=== PATIENT | male | born 1985 | race Caucasian/White ===

== ENCOUNTER 2017-02-23 17:10 | Emergency (ER) | payer BC ==
[~2017-02-23] VITALS: Ht 182.9 cm; Wt 106.6 kg
[~2017-02-23 17:10] MED LIST: ALBUTEROL2.5 MG/31 INH; ANTIVERT25 MG PO; BACTRIM DS TAB1 EACH PO; CARAFATE 1 GM TA1 GM PO; CEPHALEXIN 500500 M3 PO; FLEXERIL PO; IBUPROFEN 800800 M1 PO; NAPROSYN500 MG PO; NOHOMEMEDICATIONS; NORCO 5-325 TA1 EAC1 PO; ONDANSETRON HCL4 M2 PO; PREDNISONE 20 M20 MG PO; PREDNISONE50 MG PO; PROAIR HFA8.5 GM INH; PROMETHAZINE D480 ML PO; TENEX1 MG PO; TESSALON PERLE100 MG PO; ZPAK PO
[2017-02-23 18:12] LABS: URINE BILIRUBIN NEGATIVE (Negative); URINE BLOOD TRACE (Negative); URINE CLARITY CLEAR; URINE COLOR YELLOW; URINE GLUCOSE-RANDOM NEGATIVE (Negative); URINE KETONES NEGATIVE (Negative); URINE LEUKOCYTES-REFLEX NEGATIVE (Negative); URINE NITRITE-REFLEX NEGATIVE (Negative); URINE PROTEIN NEGATIVE (Negative); URINE SPECIFIC GRAVITY 1.025 (1.005-1.030); URINE UROBILINOGEN 0.2 E.U./dl (0.2-1.0)
[2017-02-23 18:12] LABS: ABSOLUTE EOSINOPHILS 0.1 thou/uL (0.0-0.7); ABSOLUTE LYMPHOCYTES 1.1 thou/uL (0.8-5.3); ABSOLUTE MONOCYTES 0.6 thou/uL (0.0-1.2); ABSOLUTE NEUTROPHILS 8.6 thou/uL (1.6-8.1); BASOPHILS 0.5 %; EOSINOPHILS 0.7 %; HEMATOCRIT 48.8 % (42.0-52.0); HEMOGLOBIN 17.1 gm/dL (14.0-18.0); LYMPHOCYTES 10.6 %; MCH 29.2 pg (26.0-34.0); MCV 83.3 fL (80.0-100.0); MONOCYTES 5.7 %; MPV 9.1 fl. (7.2-11.1); NUCLEATED RBCS 0 /100WBC; PLATELET COUNT* 202 thou/uL (150-400); POLYS 82.5 %; RBC 5.87 mil/uL (4.50-6.00); WBC 10.4 thou/uL (4.0-11.0)
[2017-02-23 18:22] LABS: CREATININE 1.2 mg/dL (0.6-1.3); POTASSIUM 3.9 mmol/L (3.5-5.1)
[2017-02-23 18:26] LABS: ALBUMIN 4.3 g/dL (3.4-5.0); TOTAL BILIRUBIN 0.9 mg/dL (<0.1-1.0); TOTAL PROTEIN 8.3 g/dL (6.4-8.2)
[2017-02-23] MEDS ORDERED: ZOFRAN ODT4 MG PO (18:37)
[2017-02-23 18:53] VITALS: BP 129/78
== END 2017-02-23 18:55 | disposition home or self-care (01) ==
LOC: M.ERS 17:10
PROVIDERS: Physician Assistant
DX: R11.2 Nausea with vomiting, unspecified (principal); E86.0 Dehydration

== ENCOUNTER 2017-03-25 14:44 | Emergency (ER) | payer BC ==
[~2017-03-25] VITALS: Ht 182.9 cm; Wt 108.9 kg
[~2017-03-25 14:44] MED LIST changes: +ZOFRAN ODT4 MG PO
[2017-03-25] MEDS ORDERED: POLYMYXIN B/TMP10 ML OPHTHALMIC (16:03)
[2017-03-25 16:08] VITALS: BP 131/87
== END 2017-03-25 16:09 | disposition home or self-care (01) ==
LOC: M.ERS 14:44
DX: S46.911A Strain of unspecified muscle, fascia and tendon at shoulder and upper arm level, right arm, initial encounter (principal); H10.31 Unspecified acute conjunctivitis, right eye; X50.9XXA Other and unspecified overexertion or strenuous movements or postures, initial encounter; Y93.89 Activity, other specified; Y92.89 Other specified places as the place of occurrence of the external cause; Y99.0 Civilian activity done for income or pay

== ENCOUNTER 2017-10-17 12:00 | Emergency (ER) | payer BC ==
[~2017-10-17] VITALS: Ht 182.9 cm; Wt 108.9 kg
[~2017-10-17 12:00] MED LIST changes: +POLYMYXIN B/TMP10 ML OPHTHALMIC
[2017-10-17] MEDS ORDERED: TRAMADOL 50 MG50 MG PO (12:18)
[2017-10-17] MEDS ORDERED: FLEXERIL PO (12:19)
[2017-10-17] MEDS ORDERED: AMOXICILLIN 50500 MG PO (12:52)
[2017-10-17 13:11] VITALS: BP 122/80
== END 2017-10-17 13:12 | disposition home or self-care (01) ==
LOC: M.ERS 12:00
DX: J02.9 Acute pharyngitis, unspecified (principal); J45.909 Unspecified asthma, uncomplicated

== ENCOUNTER 2018-02-17 08:26 | Emergency (ER) | payer BC ==
[~2018-02-17] VITALS: Ht 182.9 cm; Wt 108.9 kg
[~2018-02-17 08:26] MED LIST changes: +AMOXICILLIN 50500 MG PO; +TRAMADOL 50 MG50 MG PO
[2018-02-17] MEDS ORDERED: HYDROCODONE GU PO (09:19)
[2018-02-17 09:37] VITALS: BP 119/71
== END 2018-02-17 09:38 | disposition home or self-care (01) ==
LOC: M.ERS 08:26
DX: B34.9 Viral infection, unspecified (principal); J45.909 Unspecified asthma, uncomplicated

== ENCOUNTER → 2018-04-23 | Day surgery (SDC) | payer BC ==
[~2018-04-23] MED LIST changes: +HYDROCODONE GU PO; +NORCO 5-325 TA1 EACH PO
--- NOTE | 2018-04-28 11:08 | PATH ---
[facility] [address] [place] [address] PATHOLOGY RPT PROCEDURE Name: TERELL BRADY Room: [facility].#: [id number] Admission: 04/23/18 Date of : 85 Discharge: Report #: [id number] Path Case #: [id number] [facility] Accession Number: [id number] . 01 Material submitted: . LEFT CORD LIPOMA . 01 Clinical history: . Left inguinal hernia, umbilical hernia. . 02 Diagnosis: Left cord lipoma: - Benign fat consistent with "cord lipoma". (KARL:raffi; 04/27/2018) MBR/04/27/2018 . 02 Electronically signed: . Sam Martin MD, Pathologist NPI- [id number] . 01 Gross description: . Received in formalin labeled "Terell Brady, left cord lipoma" is a yellow-dave lobulated encapsulated mass measuring 5.5 x 5.3 x 2.5 cm. The external surface is inked black. Upon sectioning, the cut surface is yellow-dave and homogeneous without hemorrhage or necrosis. Staff Research Associate sections are submitted in cassettes A1-A3. ([facility]; 04/25/2018) SYC/SYC . 02 Pathologist provided ICD-10: D17.6 . 02 CPT . 948948 Specimen Comment: A courtesy copy of this report has been sent to Specimen Comment: [phone], . Specimen Comment: Report sent to / DR STILES Specimen Comment: A duplicate report has been generated due to demographic updates. Performed at: [address], [place] [id number] MD Sohan Garcia MD Phone: [phone] Performed at: 02 [facility] [address], [place], [place] [id number] MD Sam Martin MD Phone: [phone]
--- NOTE | 2018-05-03 14:05 | OP ---
[address] [address] OPERATIVE REPORT Name: JOSE ANTONIOTERELL RIZZO Room: [facility]#: [id number] Admission: 04/23/18 Attend Phys: Velasquez Simon DO Discharge: Date of : 85 Report #: [id number] THIS REPORT FOR: //name// CC: Velasquez Cobos MD DATE OF SERVICE: 04/23/2018 REFERRING PHYSICIAN: Dr. Yasmany Cobos. PREOPERATIVE DIAGNOSES: Left inguinal hernia, umbilical hernia. POSTOPERATIVE DIAGNOSES: Left inguinal hernia, umbilical hernia. PROCEDURE: Da Antoinette robotic-assisted laparoscopic left inguinal hernia repair with mesh, umbilical hernia repair (primary). SURGEON: Velasquez Simon DO ACOUSTICAL INSTALLER: Dr. Grant Albarran. SECOND JET DYEING MACHINE TENDER: Dr. Alicja Gutierrez. ANESTHESIA: General endotracheal. ESTIMATED BLOOD LOSS: Less than 20 mL. COMPLICATIONS: None. DESCRIPTION OF PROCEDURE: After obtaining proper consents and discussing risks and complications with the patient, he was taken to the operating room, laid in the supine position, administered general anesthesia. He was then prepped and draped in the usual fashion. A timeout was performed. We confirmed the appropriate patient and procedure. Preoperative antibiotics had been given. SCDs were in place. We then made a small supraumbilical skin incision and this was carried down through the skin and the subcutaneous tissue using electrocautery for hemostasis. Once the umbilical hernia was identified, it was completely dissected free and detached from the umbilicus. We then excised the hernia sac and the incarcerated preperitoneal fat, which was within the hernia sac and identified a very small defect measuring approximately 1.5 cm. I then grasped and elevated that fascial edge of the hernia defect with Cyrus clamps and then bluntly opened the peritoneum using a hemostat. We then placed two 0 Prolene sutures in a [id number] fashion through the hernia defect to secure the da Antoinette robotic camera port. The port was then inserted. Once the port was inserted, insufflation was begun. Once insufflation was complete, [place] [id number] OPERATIVE REPORT Name: TERELL BRADY Room: [facility]#: [id number] Admission: 04/23/18 Attend Phys: Velasquez Simon DO Discharge: Date of : 85 Report #: [id number] visual inspection of the anterior abdominal organs was performed. The anatomy in the left inguinal region was somewhat unusual and there were some adhesions of the sigmoid colon to that area, so we were actually unable to visualize the hernia immediately. We then placed 2 more trocars, an 8 mm trocar was placed in the left upper quadrant, a 10 mm trocar was placed in the right upper quadrant. We then docked the da Antoinette robot. We inserted the bipolar fenestrated graspers in the left upper quadrant trocar and monopolar scissors in the right upper quadrant trocar. I then broke scrub and went on the console. Once on console, we identified the ASIS on the left side, the median umbilical ligament was then identified. The peritoneum was then opened from the median umbilical ligament laterally to the ASIS. Blunt dissection was then performed starting medially and going all the way down to the pubic ramus and then dissecting farther laterally. We did identify just a small indirect inguinal hernia sac; however, there was noted to be a fairly large cord lipoma going down along the spermatic cord, this was dissected free and using electrocautery, it was completely excised, it was placed within the peritoneal cavity for removal later. We then continued to develop the space to allow for placement of a large Bard 3DMax mesh. The mesh was then inserted and then sutured in place to Satish's ligament and then also medial and lateral to the inferior epigastric vessels using 2-0 Vicryl suture. The peritoneal flap was then closed using a running 2-0 absorbable V-Loc suture. We then removed all of the needles and then grasped the cord lipoma, which was held in place until we undocked the robot. We then placed the cord lipoma into an Endopouch. It was removed through the right upper quadrant incision after that trocar was removed. We then used a PMI closure device to close the right and left upper quadrant incisions using 2-0 Vicryl suture. We then removed the camera port from the supraumbilical incision and then closed the umbilical hernia defect using the 2 previously placed 0 Prolene sutures plus an additional 0 Prolene suture. The umbilicus was then reattached to the fascia using 3-0 Vicryl suture. The subcutaneous tissues were injected with 0.5% Marcaine and then closed using 4-0 Monocryl subcuticular stitches. Mastisol, Steri-Strips, sterile OpSite and pressure dressings were placed. Sponge, needle and instrument counts were all correct at the end of the procedure. <ELECTRONICALLY SIGNED> By: Velasquez Simon DO 05/03/18 1405 [id number] Simon DO /nt
== END | disposition home or self-care (01) ==
LOC: M.SUR 06:45
DX: K40.90 Unilateral inguinal hernia, without obstruction or gangrene, not specified as recurrent (principal); K42.9 Umbilical hernia without obstruction or gangrene; D17.6 Benign lipomatous neoplasm of spermatic cord; Z98.890 Other specified postprocedural states

== ENCOUNTER 2019-01-03 10:52 | Emergency (ER) | payer OTHER ==
[~2019-01-03] VITALS: Ht 182.9 cm; Wt 108.9 kg
[2019-01-03] MEDS ORDERED: NOHOMEMEDICATIONS (11:05)
[2019-01-03] MEDS ORDERED: ZOFRAN ODT4 MG DISSOLVE (11:06)
[2019-01-03] MEDS ORDERED: ZPAK PO (11:06)
[2019-01-03 11:14] VITALS: BP 135/90
== END 2019-01-03 11:14 | disposition home or self-care (01) ==
LOC: M.ERS 10:52
DX: J18.9 Pneumonia, unspecified organism (principal); F17.210 Nicotine dependence, cigarettes, uncomplicated; Z98.890 Other specified postprocedural states

== ENCOUNTER 2019-10-26 07:59 | Emergency (ER) | payer OTHER ==
[~2019-10-26] VITALS: Ht 182.9 cm; Wt 108.9 kg
[~2019-10-26 07:59] MED LIST changes: +ZOFRAN ODT4 MG DISSOLVE
[2019-10-26 08:45] LABS: INFLUENZA A ANTIGEN Negative (Negative); INFLUENZA B ANTIGEN Negative (Negative)
[2019-10-26 09:30] VITALS: BP 126/79
== END 2019-10-26 09:30 | disposition home or self-care (01) ==
LOC: M.ERS 07:59
PROVIDERS: Family Medicine
DX: B34.9 Viral infection, unspecified (principal); Z20.828 Contact with and (suspected) exposure to other viral communicable diseases; F17.210 Nicotine dependence, cigarettes, uncomplicated

== ENCOUNTER 2020-05-02 16:08 | Emergency (ER) | payer OTHER ==
[~2020-05-02] VITALS: Ht 182.9 cm; Wt 108.9 kg
[2020-05-02 16:42] LABS: URINE BILIRUBIN NEGATIVE (Negative); URINE BLOOD 1+ (Negative); URINE CLARITY CLEAR; URINE COLOR YELLOW; URINE GLUCOSE-RANDOM NEGATIVE (Negative); URINE KETONES NEGATIVE (Negative); URINE LEUKOCYTES-REFLEX NEGATIVE (Negative); URINE NITRITE-REFLEX NEGATIVE (Negative); URINE PROTEIN NEGATIVE (Negative); URINE SPECIFIC GRAVITY >= 1.030 (1.005-1.030)
[2020-05-02 16:48] LABS: CASTS None Seen /LPF (None Seen); CRYSTALS None Seen /LPF (None Seen); MUCUS None Seen strn/LPF (None Seen); SQUAMOUS NONE SEEN /LPF (0-3); URINE RBC 0-2 Rare /HPF (0-2); URINE WBC-REFLEX 0-5 Rare /HPF (0-5)
[2020-05-02 16:49] LABS: BACTERIA-REFLEX None Seen /HPF (None Seen)
[2020-05-02 16:50] LABS: ABSOLUTE BASOPHILS 0.1 thou/uL (0.0-0.2); ABSOLUTE EOSINOPHILS 0.2 thou/uL (0.0-0.7); ABSOLUTE LYMPHOCYTES 4.2 thou/uL (0.8-5.3); ABSOLUTE MONOCYTES 0.7 thou/uL (0.0-1.2); ABSOLUTE NEUTROPHILS 4.5 thou/uL (1.6-8.1); BASOPHILS 0.6 %; EOSINOPHILS 1.7 %; HEMATOCRIT 47.7 % (42.0-52.0); HEMOGLOBIN 16.7 gm/dL (14.0-18.0); LYMPHOCYTES 43.9 %; MCH 29.3 pg (26.0-34.0); MCV 83.7 fL (80.0-100.0); MONOCYTES 7.1 %; NUCLEATED RBCS 0 /100WBC; PLATELET COUNT* 232 thou/uL (150-400); POLYS 46.7 %; WBC 9.5 thou/uL (4.0-11.0)
[2020-05-02 16:57] LABS: CALCIUM 9.4 mg/dL (8.5-10.1); CREATININE 1.1 mg/dL (0.6-1.3)
[2020-05-02 17:01] LABS: ALBUMIN 4.3 g/dL (3.4-5.0); TOTAL BILIRUBIN 0.3 mg/dL (<0.1-1.0); TOTAL PROTEIN 8.6 g/dL (6.4-8.2)
[2020-05-02] MEDS ORDERED: IBUPROFEN 800800 M1 PO (18:23)
[2020-05-02 18:38] VITALS: BP 127/82
== END 2020-05-02 18:40 | disposition home or self-care (01) ==
LOC: M.ERS 16:08
PROVIDERS: Physician Assistant
DX: R10.32 Left lower quadrant pain (principal); F17.210 Nicotine dependence, cigarettes, uncomplicated